=== PATIENT | female | born 1960 | race Caucasian/White ===

== ENCOUNTER → 2018-12-13 15:00 | Outpatient (CLI) | payer OTHER, SELFPAY ==
[2018-12-13 15:49] LABS: Add Manual Diff / Slide Review NO; Basophils Absolute Auto 100 /uL (0-100); Basophils Percent Auto 1.3 % (0-2); Eosinophils Absolute Auto 500 /uL (0-450); Eosinophils Percent Auto 8.7 % (2-4); Hematocrit 38.2 % (36-46); Hemoglobin 12.9 g/dL (12.0-16.0); Lymphocytes Absolute Auto 1400 /uL (1100-4500); Lymphocytes Percent Auto 26.2 % (25-40); Mean Corpuscular HGB Conc 33.8 % (30-36); Mean Corpuscular Hemoglobin 28.2 PG (26-34); Mean Corpuscular Volume 83.6 fL (80-100); Monocytes Absolute Auto 600 /uL (0-900); Monocytes Percent Auto 11.2 % (3-14); Neutrophils Absolute Auto 2700 /uL (1500-7000); Neutrophils Percent Auto 52.6 % (50-75); Platelet Count 200 X10^3/uL (150-400); Red Blood Cell Count 4.57 X10^6/uL (4.0-5.2); Red Cell Distribution Width 14.5 % (11.6-14.8); White Blood Cell Count 5.2 X10^3/uL (4.5-11.0)
[2018-12-13 17:03] LABS: Alanine Aminotransferase 35 IU/L (9-52); Albumin 4.3 g/dL (3.5-5.0); Albumin Globulin Ratio 1.1 (1.0-2.8); Alkaline Phosphatase 101 U/L (38-126); Aspartate Aminotransferase 42 IU/L (14-36); BUN Creatinine Ratio 21.1 (6-22); Bilirubin Total 0.9 mg/dL (0.2-1.3); Blood Urea Nitrogen 19 mg/dL (7-17); Calcium 9.4 mg/dL (8.4-10.2); Carbon Dioxide 30 mmol/L (22-32); Chloride 98 mmol/L (98-107); Estimated Glomerular Filt Rate > 60.0 mL/min (>60); Globulin 3.9 g/dL (1.7-4.1); Glucose 84 mg/dL (80-110); HEMOLYSIS < 15 (0-50); Potassium 4.5 mmol/L (3.4-5.1); Sodium 137 mmol/L (137-145); Total Protein 8.2 g/dL (6.3-8.2)
== END ==
PROVIDERS: PCP Family Medicine; Visit Provider Family Medicine
DX: D86.9 Sarcoidosis, unspecified (principal)
CPT/HCPCS: 36415; 80053; 85025

== ENCOUNTER → 2019-01-18 10:56 | Outpatient (CLI) | payer OTHER, SELFPAY ==
--- NOTE | 2019-01-18 10:57 | DI.MG.S_ITS ---
BILATERAL DIGITAL SCREENING MAMMOGRAM 3D/2D WITH CAD: 01/18/2019 CLINICAL: Routine screening. Comparison is made to exams dated: 05/25/2016 mammogram and 09/11/2009 mammogram - [facility]. The tissue of both breasts is heterogeneously dense. This may lower the sensitivity of mammography. Current study was also evaluated with a Computer Aided Detection (CAD) system. No significant masses, calcifications, or other findings are seen in either breast. There has been no significant interval change. IMPRESSION: NEGATIVE There is no mammographic evidence of malignancy. A 1 year screening mammogram is recommended. This exam was interpreted at Station ID: [id number]. NOTE: For mammograms, a report in lay terms will be sent to the patient. Approximately 15% of breast malignancies will not be visualized mammographically. In the management of a palpable breast mass, a negative mammogram must not discourage biopsy of a clinically suspicious lesion. Electronically Signed By: Kelley allen/daija:01/18/2019 16:15:35 letter sent: Normal Exam ACR BI-RADS Category 1: Negative 3341F
== END ==
PROVIDERS: PCP Family Medicine; Visit Provider Family Medicine
DX: Z12.31 Encounter for screening mammogram for malignant neoplasm of breast (principal)
CPT/HCPCS: 77063; 77067

== ENCOUNTER → 2022-03-09 16:10 | Outpatient (CLI) | payer OTHER, SELFPAY ==
[2022-03-09 16:50] LABS: COVID19 -Nasal RAPID Negative (Negative)
== END ==
PROVIDERS: PCP Family Medicine; Visit Provider Surgery
DX: Z01.812 Encounter for preprocedural laboratory examination (principal); Z20.822 Contact with and (suspected) exposure to COVID-19
CPT/HCPCS: 87635; 93005; C9803

== ENCOUNTER 2022-03-10 07:18 | Day surgery (SDC) | payer OTHER, SELFPAY ==
[2022-03-10] VITALS (13 sets, daily range): BP systolic 74–143; BP diastolic 42–78; PULSE 66–78; RESP 16; TEMP 36.2–36.8; O2SAT 97–100; BMI 28.1
[2022-03-10] MEDS: LACTATED RINGERS 1,000 ML 42 ML IV ×2 (07:45→09:52)
[2022-03-10] MEDS: MIDAZOLAM 5 MG/5 ML VIAL IV (08:50)
[2022-03-10] MEDS: fentaNYL 250 MCG/5 ML INJ 125 MCG IV (08:52)
--- NOTE | 2022-03-10 08:53 | PM.OP.COLON ---
Operative Date/Time/Diagnoses Date of procedure: 03/10/22 Time of procedure: 08:53 Pre-op diagnosis: Screening colon cancer Post-op diagnosis: same Procedure & Clinicians Study performed: Colonoscopy with moderate sedation Same procedure as scheduled: Yes Indications: Colon cancer screening Surgeon: Gemma Alfaro Procedure Notes SCOAP/Timeout: Done Procedure in detail: Preop diagnosis: Colon cancer screening Postop diagnosis: Same Operative procedure: Colonoscopy with moderate sedation Surgeon: Noni Alfaro MD Anesthetic: Versed 6 mg, fentanyl 125 mcg Scope withdrawal time: 6 Sedation minutes: 28 Findings: divertiulosis Specimen(s): none sent Complications: none Impression: Scant mild diverticulitis of this sigmoid colon. No polyps. Post-procedure Recommendations: Colonoscopy in 10 years Follow up: as needed Disposition: PACU
--- NOTE | 2022-03-10 08:57 | PM.HP.1 ---
History of Present Illness History of Present Illness Date Patient Seen: 03/10/22 Time Patient Seen: 08:58 Date of Onset of Symptoms: 03/10/22 Chief complaint: SDC Narrative: last scope was 12 years ago, no issues, no family history for colon cancer. Patient History Medical History Right bundle branch block (~2015) Sarcoidosis (~2016) Vision disorder Surgical History Anesthesia History of cholecystectomy (~2012) History of endometrial ablation (~1999) Family & Social History Family History Father Heart disease Hyperlipidemia Lung nodules Mother Diabetes mellitus Heart disease Hypertension Hyperlipidemia Mental health problem Brother Epilepsy Brother Heart disease Grandfather Cancer Grandmother Heart disease Hyperlipidemia History of being obese Bedridden Grandfather No problems noted. Grandmother Tuberculosis Social History: household members spouse Tobacco & Substance use: Smoking Status Never smoker alcohol intake current alcohol intake frequency a few times a month Substance Use Type does not use Meds Home Medications and Allergies Home Medications Medication Instructions Recorded Confirmed Type MULTIVITAMIN 1 cap PO Q DAY ##0 03/28/12 03/10/22 History ascorbic acid (vitamin C) 1,000 mg 500 mg PO DAILY 03/10/22 03/10/22 History tablet (Vitamin C) ibuprofen 200 mg tablet 200 mg PO DAILY 03/10/22 03/10/22 History turmeric 400 mg capsule 400 mg PO DAILY 03/10/22 03/10/22 History vitamin E 400 unit tablet 400 unit PO DAILY 03/10/22 03/10/22 History Allergies Allergy/AdvReac Type Severity Reaction Status Date / Time No Known Drug Allergies Allergy Verified 03/10/22 07:31 Review of Systems Review of Systems ROS: Yes All systems reviewed with the patient and are negative except as otherwise documented Exam Vital Signs (past 8 hours): - 03/10/22 07:41 Temperature 97.6 F Pulse Rate 78 Respiratory Rate 16 Blood Pressure 143/78 H Pulse Oximetry 100 Oxygen Delivery Method Room Air Oxygen Delivery Method Room Air Const General: cooperative and healthy appearing Nutritional Appearance: overweight HENMT Head: normal to inspection, normocephalic and atraumatic Face and sinus: normal facial exam Mouth: oral mucosae normal Eyes General: appearance normal, both eyes and all related structures Sclera: sclerae normal Neck Neck: normal visual inspection and trachea midline Chest Chest: normal inspection of the chest Resp Effort & Inspection: normal respiratory effort Auscultation: clear to auscultation bilaterally Cardio Rate: regular rate Rhythm: regular rhythm GI Inspection: normal to inspection Skin General: no rashes or lesions noted Neuro General: patient alert and patient oriented x3 Cognition: normal cognition Psych Appearance: grossly normal Affect: normal affect Judgment: judgment good Assessment & Plan Assessment & Plan narrative: Colon cancer screening Colonoscopy with moderate sedation COVID-19 COVID-19 status: Negative Time Spent With Patient Time with patient: less than 30 minutes Critical Care time: I spent a total of [] minutes of critical care time on this patient's care today; this time is exclusive of procedural time.
--- NOTE | 2022-03-10 09:53 | SUR.PHASEII ---
Received patient from Phase 1 nurse in stable condition; GCS 15; Neuro WNL. Patient denies any pain or nausea; denies SOB . Drinking second cup of water without difficulty. Bilateral BP checks done; see vital sign record. Second liter of LR completed. Skin pink, warm and dry.
== END 2022-03-10 10:08 | disposition home or self-care (01) ==
PROVIDERS: PCP Family Medicine; Referring Provider Surgery; Visit Provider Surgery
PROC: 0DJD8ZZ Inspection of Lower Intestinal Tract, Via Natural or Artificial Opening Endoscopic (ICD-10-PCS; CPT 45378; principal; 2022-03-10 08:30)
DX: Z12.11 Encounter for screening for malignant neoplasm of colon (principal); K57.32 Diverticulitis of large intestine without perforation or abscess without bleeding
CPT/HCPCS: G0121; 45378; 93010; 99152; 99153; J2250; J3010

== ENCOUNTER → 2022-11-23 14:49 | Outpatient (CLI) | payer OTHER, SELFPAY ==
--- NOTE | 2022-11-23 | DI.MG.S_ITS ---
BILATERAL DIGITAL SCREENING MAMMOGRAM 3D/2D WITH CAD: 11/23/2022 CLINICAL: Routine screening. Comparison is made to exams dated: 01/18/2019 mammogram - [facility], 05/25/2016 mammogram, and 09/11/2009 mammogram - [facility]. Both breasts are heterogeneously dense, which may obscure small masses (category c / 51-75% glandular tissue). Current study was also evaluated with a Computer Aided Detection (CAD) system. No significant masses, calcifications, or other findings are seen in either breast. There has been no significant interval change. IMPRESSION: NEGATIVE There is no mammographic evidence of malignancy. A 1 year screening mammogram is recommended. Based on the Tyrer Cuzick model (a risk assessment model) the patient's lifetime risk is 8.7% and her 10 year risk is 4.0%. According to the ACR, ACS, and NCCN guidelines, an annual breast MRI exam along with mammogram is recommended if the patient's lifetime risk is 20% or greater. This exam was interpreted at Station ID: [id number]. NOTE: For mammograms, a report in lay terms will be sent to the patient. Approximately 15% of breast malignancies will not be visualized mammographically. In the management of a palpable breast mass, a negative mammogram must not discourage biopsy of a clinically suspicious lesion. Electronically Signed By: Jim snider/daija:11/23/2022 15:42:30 letter sent: Normal Exam ACR BI-RADS Category 1: Negative 3341F
--- NOTE | 2022-11-24 15:27 | DI.DEXA.S_ITS ---
Indication: postmenopausal; screening for osteoporosis; Referring Provider: LOUIS ALBERTS Study: Bone densitometry was performed. Exam Date: November 23, 2022 Accession number: [id number] Bone Density: Region BMD T-score Z-score Classification AP Spine(L1-L4) 0.786 -2.4 -0.6 Osteopenia Femoral Neck (Left) 0.559 -2.6 -1.1 Osteoporosis Total Hip (Left) 0.736 -1.7 -0.5 Osteopenia Femoral Neck (Right) 0.562 -2.6 -1.1 Osteoporosis Total Hip (Right) 0.726 -1.8 -0.6 Osteopenia Total Hip Mean 0.731 -1.8 -0.6 Osteopenia World Health Organization criteria for BMD impression classify patients as: Normal (T-score at or above -1.0), Osteopenia (T-score between -1.0 and -2.5), or Osteoporosis (T-score at or below -2.5). 10-year Fracture Risk: FRAX not reported because: Some T-score for Spine Total or Hip Total or Femoral Neck at or below -2.5 Impression: The patient has osteoporosis, based on the Left Femoral Neck T-score. Discussion: INCREASED RISK OF FRACTURE. BONE DENSITY IS UNDESIRABLY LOW AT ONE OR MORE SKELETAL SITES, CONSISTENT WITH POSTMENOPAUSAL OSTEOPOROSIS. This patient's lowest T-score meets the World Health Organization's (WHO) criteria for osteoporosis at one or more sites (T-score -2.5 or below). In untreated patients, the risk of osteoporotic fracture increases approximately two-fold for each 1.0 SD decrease in T-score. Low bone density is not the only risk factor for fracture; also consider factors such as patient's age, frailty or poor health, risk of falling, risk of injury, previous osteoporotic fracture, family history of osteoporosis, cigarette smoking, low body weight, etc. Not everyone with low bone mineral density has osteoporosis; osteomalacia and other metabolic bone disorders should also be considered. Patients who have osteoporosis should be evaluated for specific diseases and conditions (secondary causes) that may cause or contribute to bone loss. The [place] [employer]ocr[employer] (AACE) and National Osteoporosis Foundation (NOF) recommend pharmacologic intervention for all postmenopausal women whose T-score is in this range. The patient should follow a healthful lifestyle (good nutrition with adequate calcium and vitamin D, and appropriate weight-bearing exercise). Follow-Up: Consider a repeat BMD and Vertebral Fracture Assessment (VFA) exam in 2 years or sooner if medically necessary, to reassess this patient's status. Reported by: PHILIPPE GARNETT MD on 11/23/2022 3:27:00 PM.
== END ==
PROVIDERS: PCP Family Medicine; Referring Provider Family Medicine; Visit Provider Family Medicine
DX: Z12.31 Encounter for screening mammogram for malignant neoplasm of breast (principal); Z78.0 Asymptomatic menopausal state; Z13.820 Encounter for screening for osteoporosis; M81.0 Age-related osteoporosis without current pathological fracture; Z92.241 Personal history of systemic steroid therapy
CPT/HCPCS: 77063; 77067; 77080